=== PATIENT | male | born 2000 | race Caucasian/White ===

== ENCOUNTER 2020-11-19 18:01 | Outpatient (CLI) | payer SELFPAY | END 2020-11-19 18:02 | disposition critical access hospital (66) | LOC: EMS 18:01 | DX: R41.82 Altered mental status, unspecified (principal) | CPT/HCPCS: A0425; A0429 ==

== ENCOUNTER 2020-11-19 18:17 | Emergency (ER) | payer SELFPAY ==
[2020-11-19 18:47] LABS: BASOPHILS % (AUTO) 0.4 %; EOSINOPHILS # (AUTO) 0.2 10^3/uL (0.0-0.7); EOSINOPHILS % (AUTO) 2.1 %; HCT - HEMATOCRIT 40.2 % (42.0-52.0); HGB - HEMOGLOBIN 13.5 g/dL (14.0-18.0); LYMPHOCYTES # (AUTO) 1.5 10^3/uL (1.5-3.5); LYMPHOCYTES % (AUTO) 15.3 %; MEAN CORPUSCULAR HEMOGLOBIN 31.8 pg (27.0-31.0); MEAN CORPUSCULAR HGB CONC 33.6 g/dL (32.0-36.0); MEAN CORPUSCULAR VOLUME 94.6 fL (80.0-94.0); MEAN PLATELET VOLUME 10.2 fL (7.4-11.4); MONOCYTES % (AUTO) 9.8 %; NEUTROPHILS % (AUTO) 72.2 %; PLT - PLATELET COUNT 205 10^3/uL (130-450); RED BLOOD COUNT 4.25 10^6/uL (4.70-6.10); RED CELL DISTRIBUTION WIDTH 12.5 % (12.0-15.0); WHITE BLOOD COUNT 9.7 x10^3/uL (4.8-10.8)
--- NOTE | 2020-11-19 18:55 | ED Physician Documentation ---
PD HPI MHE - Stated complaint Stated Complaint: SI - Chief complaint Chief Complaint: MHE - History obtained from History obtained from: Patient, Family, EMS - History of Present Illness Primary symptom: Aggressive behavior Pain level max: 0 Pain level now: 0 - Additional information Additional information: Patient is a 20-year-old male with misophonia and Asperger's syndrome. He lives at home with his parents. His father states that the patient's mental age is approximately 14. He states that the patient often gets agitated and angry. When this occurs the patient starts to strike himself often in the face. Tonight the patient said that he wanted to . 911 was called and line were brought here. Patient's father states that he has not been sleeping well and will often walk around the house naked until he "passes out". The patient does have a psychiatrist that he sees but is not currently on medications. His [employer] insurance lapsed and they do not currently have insurance. Review of Systems Constitutional: denies: Fever, Chills Respiratory: denies: Cough GI: denies: Nausea, Vomiting, Diarrhea Skin: denies: Rash Musculoskeletal: denies: Neck pain, Back pain Neurologic: denies: Focal weakness, Numbness, Headache PD PAST MEDICAL HISTORY - Past Medical History Past Medical History: Yes Psych: Other Other Past Medical History: Asburgers/Misophonia - Past Surgical History Past Surgical History: No - Present Medications Home Medications: Ambulatory Orders Medication Instructions Recorded Confirmed No Known Home Medications 11/19/20 11/19/20 - Allergies Allergies/Adverse Reactions: Allergies Allergy/AdvReac Type Severity Reaction Status Date / Time No Known Drug Allergies Allergy Verified 11/19/20 18:25 - Social History Does the pt smoke?: No Smoking Status: Never smoker Does the pt drink ETOH?: No Does the pt have substance abuse?: No - Immunizations Immunizations are current?: Yes - POLST Patient has POLST: No PD ED PE NORMAL - Vitals Vital signs reviewed: Yes - General General: Alert and oriented X 3, No acute distress - HEENT HEENT: PERRL, EOMI, Ears normal, Moist mucous membranes, Pharynx benign, Dentition benign, Other (Small abrasion to the right side of the face) - Neck Neck: Supple, no meningeal sign, No bony TTP - Cardiac Cardiac: RRR, Strong equal pulses - Respiratory Respiratory: No respiratory distress, Clear bilaterally - Abdomen Abdomen: Soft, Non tender, Non distended - Back Back: No spinal TTP - Derm Derm: Warm and dry, No rash - Extremities Extremities: No edema, No calf tenderness / cord - Neuro Neuro: Alert and oriented X 3, wind up worker 2-12 intact, No motor deficit, No sensory d eficit, Normal speech Eye Opening: Spontaneous Motor: Obeys Commands Verbal: Oriented GCS Score: 15 - Psych Psych: Normal mood, Normal affect Results - Vitals Vitals: Vital Signs - 24 hr 11/19/20 11/19/20 18:24 21:23 Temperature 37.4 C 36.7 C Heart Rate 90 85 Respiratory 18 16 Rate Blood Pressure 120/69 112/58 L O2 Saturation 98 100 Oxygen O2 Source Room air - Labs Labs: Laboratory Tests 11/19/20 11/19/20 11/19/20 18:41 18:41 18:41 WBC 9.7 RBC 4.25 L Hgb 13.5 L Hct 40.2 L MCV 94.6 H MCH 31.8 H MCHC 33.6 RDW 12.5 Plt Count 205 MPV 10.2 Neut # (Auto) 7.0 H Lymph # (Auto) 1.5 [place] # (Auto) 1.0 Eos # (Auto) 0.2 Baso # (Auto) 0.0 Absolute Nucleated RBC 0.00 Nucleated RBC % 0.0 Sodium 138 Potassium 4.0 Chloride 102 Carbon Dioxide 27 Anion Gap 9.0 BUN 23 H Creatinine 0.8 Estimated GFR (MDRD) 122 Glucose 98 Calcium 9.3 Total Bilirubin 1.2 H AST 27 ALT 21 Alkaline Phosphatase 43 Total Protein 7.1 Albumin 4.7 Globulin 2.4 Albumin/Globulin Ratio 2.0 Lipase 21 L TSH 1.10 Salicylates < 6.0 Acetaminophen < 10 L Ethyl Alcohol < 5.0 PD MEDICAL DECISION MAKING - ED course Complexity details: reviewed results, re-evaluated patient, considered differential, d/w patient, d/w family, d/w [employer] consultant ED course: Patient is calm and cooperative in the emergency department. Not suicidal. The father does not want to wait for telepsychiatry evaluation. He is comfortable taking him home at this time. Recommend that they strongly consider a potential long-term fdc for the patient. Also recommend that they talk to their psychiatrist on Saturday at his scheduled appointment for medication to help with his anger outbursts. Informed the patient and his father that they are both welcome to return at any time should they change their mind about repeat evaluation. Patient and family counseled regarding signs and symptoms for which I believe and urgent re-evaluation would be necessary. Patient with good understanding of and agreement to plan and is comfortable going home at this time This document was made in part using voice recognition software. While efforts are made to proofread this document, sound alike and grammatical errors may occur. Departure - Departure Disposition: 01 Home, Self Care Clinical Impression: Aggressive behavior, Aspergers' syndrome, Misophonia Condition: Stable Instructions: Autism Follow-Up: your,doctor on saturday as scheduled. [Other] Comments: You need to follow-up with his doctor on Saturday as scheduled. They should be able to prescribe medications for his anger outbursts. They may want to look into a specialized long-term fdc for him as well. Return if he worsens
[2020-11-19 19:02] LABS: ACETAMINOPHEN < 10 ug/mL (10-30); ALBUMIN 4.7 g/dL (3.2-5.5); ALKALINE PHOSPHATASE 43 IU/L (42-121); ALT ALANINE AMINOTRANSFERASE 21 IU/L (10-60); AST ASPARTATE AMINOTRANSFERASE 27 IU/L (10-42); BILIRUBIN,TOTAL 1.2 mg/dL (0.2-1.0); BUN - BLOOD UREA NITROGEN 23 mg/dL (6-20); CALCIUM 9.3 mg/dL (8.5-10.3); CARBON DIOXIDE - CO2 27 mmol/L (21-32); CHLORIDE 102 mmol/L (101-111); CREATININE 0.8 mg/dL (0.6-1.2); ETOH - ETHANOL < 5.0 mg/dL; GFR - MDRD 122 (>89); GLUCOSE 98 mg/dL (70-100); LIPASE 21 U/L (22-51); SALICYLATE < 6.0 mg/dL; SODIUM 138 mmol/L (135-145); TOTAL PROTEIN 7.1 g/dL (6.7-8.2)
[2020-11-19 21:23] VITALS: BP 112/58
== END 2020-11-19 21:45 | disposition home or self-care (01) ==
LOC: ED 18:17
DX: F84.5 Asperger's syndrome (principal); R45.4 Irritability and anger
CPT/HCPCS: 36415; 80053; 80307; 80320; 80329; 83690; 84443; 85025; 99283; 99284

== ENCOUNTER 2021-02-24 11:12 | Emergency (ER) | payer MEDICAID ==
--- NOTE | 2021-02-24 12:08 | ED Physician Documentation ---
PD HPI SKIN - Stated complaint Stated Complaint: DRUG REACTION - Chief complaint Chief Complaint: General - History obtained from History obtained from: Patient - History of Present Illness Timing - onset: How many days ago (has had redness and swelling right lower leg for 2-3 days. Seen by PMD and Rx Keflex yesterday. Pt states he has gotten anxious with increased hitting himself (which is stress reaction for him) after each dose (3 doses so far). He and Mom feel it is med reaction. No itching nor dyspnea.) Timing - duration: Days Timing - details: Gradual onset, Still present Location: RLE (anterolateral right lower leg with also some swelling of ankle and discoloration around base of foot/heel.) Quality / character: Painful, Discolored. No: Itchy Associated symptoms: No: Fever, Facial swelling, Dyspnea, N/V/D Contributing factors: No: Insect bite /sting, Recent illness Similar symptoms before: Has not had sx before Recently seen: Clinic, Admitted (was in Psych facility few weeks ago for anxiety and self-hitting (not suicidal but stress reaction). Was Rx Sertraline that he has not started yet (feeling anxious about it) and Hydroxyzine to use PRN, but has not used it yet either.) Review of Systems Constitutional: denies: Fever, Chills Nose: denies: Rhinorrhea / runny nose, Congestion Throat: denies: Sore throat Respiratory: denies: Cough Skin: reports: Rash. denies: Lesions, Abrasion (s), Laceration (s) Neurologic: denies: Focal weakness, Numbness PD PAST MEDICAL HISTORY - Past Medical History Cardiovascular: None Respiratory: None Neuro: None Endocrine/Autoimmune: None Psych: Panic attacks (autistic behavior. ), Other - Past Surgical History Past Surgical History: No - Present Medications Home Medications: Ambulatory Orders Medication Instructions Recorded Confirmed Doxycycline Hyclate 100 mg PO BID #14 02/24/21 - Allergies Allergies/Adverse Reactions: Allergies Allergy/AdvReac Type Severity Reaction Status Date / Time No Known Drug Allergies Allergy Verified 11/19/20 18:25 - Social History Does the pt smoke?: No Smoking Status: Never smoker Does the pt drink ETOH?: No Does the pt have substance abuse?: No - Immunizations Immunizations are current?: Yes - POLST Patient has POLST: No PD ED PE NORMAL - Vitals Vital signs reviewed: Yes - General General: Alert and oriented X 3 (anxious and is holding hand over ear at times, seeming bothered by surrounding noise, and tapping at his forehead gently (which apparently distracts himself). ), Well developed/nourished - HEENT HEENT: Moist mucous membranes, Pharynx benign - Neck Neck: Supple, no meningeal sign, No adenopathy - Cardiac Cardiac: RRR, No murmur - Respiratory Respiratory: Clear bilaterally - Derm Derm: Normal color, Warm and dry - Extremities Extremities: Other (right lower leg with redness, warmth, and tender area anterolateral. No ulcerations nor fluid collections. There is some edema around ankle without tenderness and some purple bruising appearance around heel/sides of ankles. ) - Neuro Neuro: Alert and oriented X 3, No motor deficit, Normal speech Eye Opening: Spontaneous - Psych Psych: No: Normal affect (anxious. Is calmed by listening to music on earbuds, and also by tapping at his forehead. Still seems anxious. ) Results - Vitals Vitals: Vital Signs - 24 hr 02/24/21 02/24/21 11:16 14:33 Temperature 36.8 C Heart Rate 98 99 Respiratory 18 17 Rate Blood Pressure 116/62 112/89 H O2 Saturation 96 97 Oxygen O2 Source Room air - Rads (name of study) duplex right leg Radiology: Prelim report reviewed, See rad report, Other (s/w tech - no DVT. There is lymph node in inguinal area. ) PD MEDICAL DECISION MAKING - ED course Complexity details: reviewed results (no DVT. Node in inguinal supports celluitis/infectious cause. ), re-evaluated patient (He had been Rx Hydroxyzine at Psych facility but has not used it yet. He agreed to try it in ER. Given dose 25 mg with repeat 1/2 hour later. This did seem to help him relax moderately. He and mom feel he had reaction to the Keflex. Can change to Doxy, which would have better staph coverage anyway. ), considered differential (does seem cellulitis. Has tender area and some lower leg swelling generally, so can get U/S to ensure no clots. ), d/w patient Departure - Departure Disposition: 01 Home, Self Care Clinical Impression: Anxiety reaction, Medication side effect Cellulitis, leg Qualifiers: Laterality: right Qualified Code(s): L03.115 - Cellulitis of right lower limb Condition: Stable Record reviewed to determine appropriate education?: Yes Instructions: ED Infec Skin Cellulitis Follow-Up: Sona Ruiz MD [Primary Care Provider] - Prescriptions: Doxycycline Hyclate 100 mg PO BID #14 Comments: Since you seem to be having side effects to the cephalexin, I would discontinue the antibiotic and change it. I would also have you regularly take the hydroxyzine 1 to 2 tablets 3 times a day over the next 5 or 6 days. You can use 1 tablet morning and afternoon and 2 at night to help with sleep. This should help with the anxiety. See how you do over the next several days or so regarding the leg infection. As it improves and you are off the antibiotics, then would be a good time to start the prescribed sertraline. I would not start the sertraline yet so as to not confuse potential side effects with the current new medications. I would urge you to start the Sertraline (Zoloft) however once you finish the antibiotics in 5 or 6 days. Discharge Date/Time: 02/24/21 14:35
--- NOTE | 2021-02-24 14:04 | Ultrasound Report ---
PROCEDURE: Duplex Ext Veins Right INDICATIONS: right mid calf tender/ swelling distall TECHNIQUE: Real-time imaging, as well as color and pulse Doppler interrogation, were performed of the lower extr emity deep veins from the inguinal ligament to the popliteal fossa. COMPARISON: None. FINDINGS: The deep veins are normally compressible, and free of intraluminal thrombus. Color and pu lse Doppler demonstrate normal phasic intraluminal flow. There is normal augmentation response to di stal compression maneuver. Note is made of a right groin lymph node measuring 0.9 x 2.8 x 3.2 cm, wit h mild increased vascularity. This may represent a reactive lymph node. IMPRESSION: No DVT found. Mildly enlarged node at the right groin, potentially reactive in origin gi alex mild elevated vascularity. This structure measures 0.9 x 2.8 x 3.2 cm. No additional enlarged lym ph nodes found. Continued clinical follow-up targeted to this particular lymph node likely is warrant ed and if this structure enlarges or additional Reviewed by: Joseph Flores MD on 02/24/2021 2:03 PM PDT Approved by: Joseph Flores MD on 02/24/2021 2:03 PM PDT Station ID: [id number]
[2021-02-24] MEDS ORDERED: DOXYCYCLINE 100 MG TABLET PO STA (14:16)
[2021-02-24 14:34] VITALS: BP 112/89
== END 2021-02-24 14:35 | disposition home or self-care (01) ==
LOC: ED 11:12
DX: L03.115 Cellulitis of right lower limb (principal); T50.905A Adverse effect of unspecified drugs, medicaments and biological substances, initial encounter; F41.9 Anxiety disorder, unspecified
CPT/HCPCS: 93971; 99284; A9270

== ENCOUNTER 2021-03-05 11:38 | Emergency (ER) | payer MEDICAID ==
[2021-03-05 11:51] VITALS: BP 118/79
--- NOTE | 2021-03-05 12:30 | ED Physician Documentation ---
History of Present Illness - Stated complaint Stated Complaint: MEDICATION ADJUSTMENT - Chief complaint Chief Complaint: General - History obtained from History obtained from: Patient, Family - Additonal information Additional information: 20-year-old gentleman is currently a resident of [facility] [place]. He has a history of anxiety. He was prescribed hydroxyzine and sertraline but is not currently taking them. He is feeling like over the last days to weeks his anxiety is much better without specific therapy and does not feel like he needs to take medication. He is accompanied by his mother who is concerned that given prior paperwork on the chart urging him to take sertraline, if he did not have paperwork stating that he does not need sertraline necessarily, he would get kicked out of [employer]. No SI or HI. Review of Systems Constitutional: reports: Reviewed and negative Ears: reports: Reviewed and negative Throat: reports: Reviewed and negative PD PAST MEDICAL HISTORY - Past Medical History Cardiovascular: None Respiratory: None Neuro: None Endocrine/Autoimmune: None Psych: Panic attacks (autistic behavior. ), Other - Past Surgical History Past Surgical History: No - Present Medications Home Medications: Ambulatory Orders Medication Instructions Recorded Confirmed Doxycycline Hyclate 100 mg PO BID #14 02/24/21 - Allergies Allergies/Adverse Reactions: Allergies Allergy/AdvReac Type Severity Reaction Status Date / Time No Known Drug Allergies Allergy Verified 03/05/21 11:50 - Social History Does the pt smoke?: No Smoking Status: Never smoker Does the pt drink ETOH?: No Does the pt have substance abuse?: No - Immunizations Immunizations are current?: Yes - POLST Patient has POLST: No PD ED PE NORMAL - Vitals Vital signs reviewed: Yes - General General: Alert and oriented X 3, No acute distress - Extremities Extremities: Other (Residual redness of both legs, left worse than right but without warmth. He was recommended that he elevate them as much as possible.) - Neuro Neuro: Alert and oriented X 3, Normal speech - Psych Psych: Normal mood, Normal affect Results - Vitals Vitals: Vital Signs - 24 hr 03/05/21 11:45 Temperature 36.3 C L Heart Rate 93 Respiratory 15 Rate Blood Pressure 118/79 O2 Saturation 99 Oxygen O2 Source Room air PD MEDICAL DECISION MAKING - ED course ED course: He is here with concerns accompanied by his mom that he will get kicked out of his current housing situation given the current language on discharge instructions urging him to take sertraline. He does not feel like he needs it now and does not want to take it. Mom is agreeable and plans to enroll him in cognitive behavioral therapy. She really just needed language on the chart stating that he can but is not compelled to take the medication. Departure - Departure Disposition: 01 Home, Self Care Condition: Good Record reviewed to determine appropriate education?: Yes Comments: He may start to take sertraline if he desires, but cannot be compelled to do so. Mom is arranging follow-up with cognitive behavioral therapy. Return as needed for new or worsening symptoms. Discharge Date/Time: 03/05/21 12:33
== END 2021-03-05 12:33 | disposition home or self-care (01) ==
LOC: ED 11:38
DX: F41.9 Anxiety disorder, unspecified (principal); T43.596A Underdosing of other antipsychotics and neuroleptics, initial encounter; T43.226A Underdosing of selective serotonin reuptake inhibitors, initial encounter
CPT/HCPCS: 99281; 99283

== ENCOUNTER 2023-10-15 13:37 | Outpatient (CLI) | payer MEDICAID | END 2023-10-15 13:38 | disposition EMS.NT | LOC: EMS 13:37 | DX: R23.8 Other skin changes (principal) ==

== ENCOUNTER 2024-03-01 05:38 | Outpatient (CLI) | payer MEDICAID | END 2024-03-01 05:39 | disposition critical access hospital (66) | LOC: EMS 05:38 | DX: Z04.6 Encounter for general psychiatric examination, requested by authority (principal); F41.9 Anxiety disorder, unspecified; R51.9 Headache, unspecified | CPT/HCPCS: A0425; A0429; A0999 ==

== ENCOUNTER 2024-03-01 05:55 | Emergency (ER) | payer MEDICAID ==
--- NOTE | 2024-03-01 06:09 | ED Physician Documentation ---
History of Present Illness - Stated complaint Stated Complaint: MHE - Chief complaint Chief Complaint: MHE - History obtained from History obtained from: Patient, EMS - Additonal information Additional information: BIBA. HPI from patient, EMS. Patient says he woke from a nightmare tonight and was so upset and disturbed by the nightmare that he repeatedly struck his head against the bedroom wall. He is staying in a hotel and someone in the adjacent room called 911 due to the repetitive banging sounds. Patient denies SI/HI/AH/VH. He tells me he feels much better now compared to when he first woke up. PD PAST MEDICAL HISTORY - Past Medical History Cardiovascular: None Respiratory: None Neuro: None Endocrine/Autoimmune: None Psych: Panic attacks (autistic behavior. ), Other - Past Surgical History Past Surgical History: No - Present Medications Home Medications: Ambulatory Orders Medication Instructions Recorded Confirmed Doxycycline Hyclate 100 mg PO BID #14 02/24/21 ALPRAZolam [Alprazolam] 0.5 mg PO BID PRN #12 tablet 03/01/24 - Allergies Allergies/Adverse Reactions: Allergies Allergy/AdvReac Type Severity Reaction Status Date / Time No Known Drug Allergies Allergy Verified 03/01/24 06:05 - Social History Does the pt smoke?: No Smoking Status: Never smoker Does the pt drink ETOH?: No Does the pt have substance abuse?: No - Immunizations Immunizations are current?: Yes - POLST Patient has POLST: No PD ED PE NORMAL - Vitals Vital signs reviewed: Yes - General General: Alert and oriented X 3, No acute distress, Well developed/nourished - HEENT HEENT: Atraumatic, PERRL, EOMI - Neck Neck: No bony TTP - Cardiac Cardiac: RRR, No murmur - Respiratory Respiratory: No respiratory distress, Clear bilaterally - Neuro Neuro: Alert and oriented X 3, Normal speech Eye Opening: Spontaneous Motor: Obeys Commands Verbal: Oriented GCS Score: 15 - Psych Psych: Normal mood, Normal affect Results - Vitals Vitals: Oxygen O2 Source Room air PD Medical Decision Making - ED course Complexity details: reviewed old records, considered differential, d/w patient ED course: Only [facility] ED visits per [facility] were three visits (in a short span) in 2020. The first was for mental health-related c/o. On the second visit, the ED MD HPI indicates patient sometimes strikes himself as an outlet for when he feels stressed. I suspect this was what happened tonight in regard to his banging his head against the wall. On this evaluation, patient is AAOx3, smiling, pleasant, calm and cooperative. He says he feels much improved. We discussed what his goals are for this ED visit, and he indicates he does not have any particular want or need at this time from medical standpoint. Furthermore, when I ask him if he is comfortable with d/c, he indicates he is comfortable and feels safe being discharged. I recommended rx for small supply of PRN benzodiazepine to be used in such situations; specifically to take a dose of alprazolam if he feels overwhelmed to the point of contemplating, or actually undertaking, self-injurious behavior(s). I explained that the medication is meant to allow him a filter to process information a little at a time rather than feeling overwhelmed, but I emphasized the need to follow up with his PCP (or mental health professional if he has one or can obtain appropriate referral through PCP) so the medication does not become thought of as a long-term coping mechanism. Patient expresses understanding of this and agrees with the rx; he declines dose in ED, says he no longer feels particularly stressed or upset about the nightmare. Return precautions reviewed. Departure - Departure Disposition: 01 Home, Self Care Clinical Impression: Anxiety Condition: Good Instructions: ED Panic Attack Prescriptions: ALPRAZolam [Alprazolam] 0.5 mg PO BID PRN #12 tablet PRN Reason: Anxiety Comments: Providing you with a prescription for alprazolam (Xanax). You can take this up to 2 times a day but only take it as needed for anxiety. If you find that, in general, your episodes of anxiety are becoming more frequent, more intense, or more persistent (episodes lasting longer and longer), pursue follow up with your primary care provider for reevaluation; in such a case, you might benefit from longer-term anti-anxiety medication. Forms: PCP List Discharge Date/Time: 03/01/24 06:20
[2024-03-01 06:10] VITALS: BP 128/79; O2SAT 99
== END 2024-03-01 06:20 | disposition home or self-care (01) ==
LOC: EDUNIT# → ED 05:55
DX: F41.0 Panic disorder [episodic paroxysmal anxiety] (principal)
CPT/HCPCS: 99283